=== PATIENT | female | born 1985 | race Two or more races ===

== ENCOUNTER 2024-12-12 14:01 | Outpatient (RCR) | payer MEDICAID, SELFPAY | END 2025-01-05 23:59 | disposition home or self-care (01) | LOC: SCTC 14:01 | PROVIDERS: PCP Physician Assistant; Referring Provider Physician Assistant; Visit Provider Nurse Practitioner Family | DX: D50.9 Iron deficiency anemia, unspecified (principal); N94.6 Dysmenorrhea, unspecified | CPT/HCPCS: 99212; G0463 ==

== ENCOUNTER 2025-01-30 13:01 | Outpatient (RCR) | payer MEDICAID, SELFPAY | END 2025-02-04 23:59 | disposition home or self-care (01) | LOC: SCTC 13:01 | PROVIDERS: PCP Physician Assistant; Referring Provider Physician Assistant; Visit Provider Internal Medicine Hematology & Oncology | DX: D50.9 Iron deficiency anemia, unspecified (principal); N94.6 Dysmenorrhea, unspecified | CPT/HCPCS: 96365; 96413; J3490; J7040; Q0138 ==

== ENCOUNTER 2025-02-25 09:22 | Outpatient (RCR) | payer MEDICAID, SELFPAY | END 2025-03-07 23:59 | disposition home or self-care (01) | LOC: SCTC 09:22 | PROVIDERS: PCP Physician Assistant; Referring Provider Physician Assistant; Visit Provider Internal Medicine Hematology & Oncology | DX: D50.9 Iron deficiency anemia, unspecified (principal); N92.0 Excessive and frequent menstruation with regular cycle; N94.6 Dysmenorrhea, unspecified | CPT/HCPCS: 96365; 99212; J3490; Q0138; G0463 ==

== ENCOUNTER 2025-03-26 13:04 | Outpatient (AMB) | payer MEDICAID, SELFPAY ==
[2025-03-26 13:23] VITALS: BP 128/82; PULSE 97; RESP 18; TEMP 36.6; O2SAT 98; BMI 32.3
--- NOTE | 2025-03-26 13:23 | GYNCLNT_ITS ---
Vital Signs 03/26/25 13:23 Height 1.73 m Height Method Stated Weight 96.332 kg Weight Measurement Method Standing Scale BMI 32.3 BP 128/82 Blood Pressure Source Automatic Cuff Blood Pressure Location Left Upper Arm Position Sitting Respiration 18 Pulse 97 Pulse Source Monitor Temp 97.8 F Temp Source Oral Pulse Oximetry (%) 98 Oxygen Delivery Method Room Air Allergies/Home Meds Allergies & Medications Allergies ibuprofen Allergy (Severe, Verified 03/26/25 13:24) Hives Penicillins Allergy (Severe, Verified 03/26/25 13:24) Hives vancomycin Allergy (Severe, Verified 03/26/25 13:24) Hives Medication Reconciliation desogestrel 0.15 mg-ethinyl estradiol 0.03 mg tablet (Enskyce) 1 tab PO DAILY 09/16/19 [History Confirmed 03/26/25] hydrocodone 5 mg-acetaminophen 325 mg tablet ([place]) 1 tab PO Q6H PRN pain #14 tabs 02/23/20 [Rx Confirmed 03/26/25] cyclobenzaprine 10 mg tablet 10 mg PO TID #20 tabs 02/18/23 [Rx Confirmed 03/26/25] Intake Visit Data Collection New Patient or Established: Established Patient (seen at [facility] within 3 years) Reason for Visit:: REFERRAL FOR MENORRHAGIA/ PAINFUL PERIODS Seen by Clinical Staff ONLY (RN/MA): No Graphics Manager Required: No Do You Feel Safe at Home: Yes Authorities Contacted: N/A PCP or OBGYN visit in last 3 months: Yes Hx Now: No Are you currently on any form of Control: Yes Last menstrual period: 03/10/25 Pain Present Currently: No Pain Scale Used: Benz-Cornejo/Numerical Pain scale:: 0 Smoking Status Smoking Status: Never smoker Immunizations Flu Vaccine in the Last 12 Months: Yes Date of most recent flu vaccination: 03/03/25 Flu Vaccine Exclusion Criteria: Already 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 Menstrual regularity: regular Flow: heavy Monthly: Yes How many days does period last: 7 Age at menarche: 9 Currently 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 1. Little interest or pleasure in doing things: not at all 2. Feeling down, depressed, or hopeless: not at all Total score: 0 PHQ-9 3. Trouble falling or staying asleep, or sleeping too much: Not at all 4. Feeling tired or having little energy: Not at all 5. Poor appetite or overeating: Not at all 6. Feeling bad about yourself - or that you are a failure or have let yourself or your family down: Not at all 7. Trouble concentrating on things, such as reading the newspaper or watching television: Not at all 8. Moving or speaking so slowly that other people could have noticed? - Or the opposite - being so fidgety or restless that you have been moving around a lot more than usual: not at all 9. Thoughts that you would be better off or of hurting yourself in some way: Not at all Total score: 0 Source: Developed by Drs. Devaughn Jensen, Colleen Waldron, Lamont Jimenez and colleagues, with an educational lisbeth from [employer]. Depression screen completed yes Social History Living Situation History Housing: Apartment Tobacco History Smoking Status: Never smoker Alcohol History Alcohol Intake: Former Domestic Abuse History Do You Feel Safe at Home: Yes History of Present Illness HPI Narrative 40 years old P4/ with previous 2 c sections and also has had a BTL, on BCPills for heavy periods and Iron deficiency anemia and needing iron infusions , referred from Dr Cantrell / heme- oncology . Patient is on Enskyce for almost 10 years and she states her periods are not heavy , the flow is normal on the BCpill but she has nausea and vomiting and headache and fatigue when she starts her period . she has not had a pelvic US or any other evaluation . She is waiting for insurance approval for EGD Review of Systems Review of Systems Systems Reviewed: All systems reviewed, normal except as documented Exam Narrative Physical exam: Alert and oriented x 3 no shortness of breath Pain no chest pain no palpitations Chest clear bilaterally no additional sounds, no wheezing no rales CVS regular rate and rhythm No CVAT Abdomen nontender, normal bowel sounds No guarding no rigidity No hernias pelvic exam deferred Results Objective Laboratory: recent Hb on 01/17/2025 is 11.1 / plts are 781low ferritin in november 2024 her TIBC was increased and iron was low and Hb was 10.6 Imaging: will order and will also need a TSH/T4 on follow up Office Procedures OBC Clinic LOC & Office Proc's Nursing/Assessment Patient Status: Established Patient OB Clinic Nursing Assessment: Medication Reconciliation, Update PMH in EMR and Vital Signs OB Clinic Coordination of Care: Complex Care and Chronic Disease 1-5, Consent,records obtained, informed consent, Education Simp Pt/Fam, 1 Ins Authorization, Lab and Imaging orders, Results/Orders obtained and Staff clarify orders Established Patient Charge Established Patient Point Assignment: 120 Established Patient Point Charge: EP Level 4 (120-155) Assessment & Plan Diagnosis / Problem List (1) Menorrhagia: Status: Acute Qualifiers: Menorrhagia type: with regular cycle Qualified Code(s): N92.0 - Excessive and frequent menstruation with regular cycle (2) Iron deficiency anemia: Status: Acute Qualifiers: Iron deficiency anemia type: chronic blood loss Qualified Code(s): D50.0 - Iron deficiency anemia secondary to blood loss (chronic) (3) Menstrual headache: Status: Acute Qualifiers: Status migrainosus presence: without status migrainosus Intractability: not intractable Qualified Code(s): G43.829 - Menstrual migraine, not intractable, without status migrainosus Assessment and Plan: HISTORY OF PRESENT ILLNESS AI Consent obtained: I, Dr. Gibbs, have obtained verbal consent from the patient, to be recorded during this encounter which may include, but not limited to, medical history, examination, treatment plans, and relevant health information. Patient was informed that recording will be read and reviewed by myself before inclusion in the medical chart. Recordings will be maintained in accordance with State and Federal law and only for a limited period of time for validation purposes, then destroyed and not retained. The patient is a 44-year-old female who presents for evaluation of heavy menstrual bleeding. She was referred by Dr. He due to heavy menstrual bleeding, which has led to a diagnosis of iron deficiency anemia and subsequent iron infusions. Her hemoglobin level in 01/2025 was recorded at 11.7. She reports that her menstrual flow has normalized with the use of control pills, which she has been taking for approximately 14 years. However, she experiences headaches, nausea, and fatigue during her menstrual cycle. She has not undergone an ultrasound examination of her uterus and ovaries. Her last Pap smear was conducted last year at [facility], with no abnormalities reported. She has been on anticoagulant therapy for several years and is considering a hysterectomy to avoid further blood transfusions. She underwent a tubal ligation procedure following the of her child via . She is contemplating discontinuing her control pills to observe any changes in her symptoms. She does not require any medication refills at this time. She has been referred to a financial accounting manager for potential internal bleeding and is currently awaiting insurance approval for an EGD. Gynecological History discussed: - Frequency and flow: Normalized with control pills - Menstrual pain: Headaches, nausea, and fatigue CONTRACEPTION: - Type: control pills (Enskyce) - Duration: Approximately 14 years Obstetrical History discussed: - Tubal ligation/with PAST SURGICAL HISTORY: - Tubal ligation with RESULTS Labs - Hemoglobin level: 01/2025, 11.7 g/dL ASSESSMENT AND PLAN 1. Menorrhagia: - Menorrhagia has been effectively managed with oral contraceptives, but nausea occurs at the onset of her menstrual cycle, suggesting a potential hormonal imbalance. - Various treatment options were discussed, including ablation, Depo-Provera injections every 3 months, an implantable lesley in the arm, and an intrauterine device (IUD). The possibility of using continuous control pills was also considered. An ultrasound will be ordered to evaluate the condition of her uterus and ovaries. A Pap smear report will be requested from the clinic where it was previously conducted. - She will continue her current regimen of Enskyce for 3 weeks, followed by a new pack after 3 weeks. This cycle will be repeated for 3 packs, after which she will take the fourth pack in its entirety. This approach aims to reduce her menstrual frequency to once every 3 months, potentially alleviating her nausea and vomiting. 2. Iron deficiency anemia: - She has been receiving iron infusions due to heavy periods, which have now normalized with control pills. - Her hemoglobin level was 11.7 in 01/2025. 3. Suspected internal bleeding: - She has been referred to a financial accounting manager and is awaiting insurance approval for an EGD to investigate potential internal bleeding sources. Follow-up: The patient will follow up in 10 weeks. Plan as above
== END 2025-03-26 13:50 | disposition home or self-care (01) ==
LOC: HODSOBC 13:04
PROVIDERS: Supervising Provider Obstetrics & Gynecology; Visit Provider Obstetrics & Gynecology
DX: N92.0 Excessive and frequent menstruation with regular cycle (principal); D50.9 Iron deficiency anemia, unspecified; G43.829 Menstrual migraine, not intractable, without status migrainosus; Z98.51 Tubal ligation status; Z88.6 Allergy status to analgesic agent; Z88.0 Allergy status to penicillin; Z88.1 Allergy status to other antibiotic agents
CPT/HCPCS: 99214; G0463